=== PATIENT | male | born 1970 | race Caucasian/White ===

== ENCOUNTER 2018-01-30 18:20 | Emergency (ER) | payer MEDICARE, MEDICAID ==
[~2018-01-30] VITALS: Ht 604 cm; Wt 87.0 kg
[~2018-01-30 18:20] MED LIST: BAC10T PO; CARI250T PO; CLIN300C85 PO
[2018-01-30 18:25] VITALS: BP 148/72
[2018-01-30] MEDS ORDERED: ketorolac tromethamine 15mg/ml inj. IM ONE (19:55)
[2018-01-30] MEDS ORDERED: CYCL-1 PO (19:57)
[2018-01-30] MEDS ORDERED: orphenadrine citrate 60mg/2ml inj. IM ONE (20:00)
== END 2018-01-30 20:18 | disposition home or self-care (01) ==
LOC: ER 18:21
DX: M25.512 Pain in left shoulder (principal); I10 Essential (primary) hypertension; G89.29 Other chronic pain; Z88.6 Allergy status to analgesic agent; Z88.1 Allergy status to other antibiotic agents; Z88.0 Allergy status to penicillin; Z88.2 Allergy status to sulfonamides; Z88.8 Allergy status to other drugs, medicaments and biological substances
CPT/HCPCS: 96372; 99284; J1885; J2360

== ENCOUNTER 2018-07-14 18:03 | Emergency (ER) | payer MEDICARE, MEDICAID ==
[~2018-07-14] VITALS: Ht 177.8 cm; Wt 86.4 kg
[~2018-07-14 18:03] MED LIST changes: +CYCL-1 PO
[2018-07-14 18:07] VITALS: BP 158/94
[2018-07-14] MEDS ORDERED: AMOX500C2 PO (19:20)
--- NOTE | 2018-07-14 19:48 | NUR ---
PRESCRIPTION FOR PCN GIVEN. DISCUSSION WITH BOTH PT AND PA THAT PT HAS TAKEN AMOXICILLIN BEFORE AND WAS NOT ALLERGIC.
== END 2018-07-14 19:45 | disposition home or self-care (01) ==
LOC: ER 18:03
DX: K08.89 Other specified disorders of teeth and supporting structures (principal); I10 Essential (primary) hypertension; G89.29 Other chronic pain; Z88.1 Allergy status to other antibiotic agents; Z88.0 Allergy status to penicillin; Z88.6 Allergy status to analgesic agent; Z88.2 Allergy status to sulfonamides; Z88.8 Allergy status to other drugs, medicaments and biological substances; Z79.899 Other long term (current) drug therapy
CPT/HCPCS: 64400; 99284

== ENCOUNTER 2018-09-07 20:35 | Emergency (ER) | payer MEDICARE, MEDICAID ==
[~2018-09-07] VITALS: Ht 177.8 cm; Wt 88.6 kg
[~2018-09-07 20:35] MED LIST changes: +CLIN-96 PO; -CLIN300C85 PO
[2018-09-07 20:45] VITALS: BP 165/100
[2018-09-07] MEDS ORDERED: IBUP-1984 PO (21:20)
[2018-09-07] MEDS ORDERED: AMOX500C2 PO (21:20)
== END 2018-09-07 21:31 | disposition home or self-care (01) ==
LOC: ER 20:36
DX: S02.5XXA Fracture of tooth (traumatic), initial encounter for closed fracture (principal); I10 Essential (primary) hypertension; G89.29 Other chronic pain; Z88.0 Allergy status to penicillin; Z88.1 Allergy status to other antibiotic agents; Z88.6 Allergy status to analgesic agent; Z88.8 Allergy status to other drugs, medicaments and biological substances; Z79.2 Long term (current) use of antibiotics; Z79.899 Other long term (current) drug therapy; W22.8XXA Striking against or struck by other objects, initial encounter; Y93.89 Activity, other specified; Y92.89 Other specified places as the place of occurrence of the external cause; Y99.8 Other external cause status
CPT/HCPCS: 99283

== ENCOUNTER 2019-11-25 19:32 | Emergency (ER) | payer MEDICARE, MEDICAID ==
[~2019-11-25] VITALS: Ht 177.8 cm; Wt 88.6 kg
[~2019-11-25 19:32] MED LIST changes: -CLIN-96 PO; +CLIN-97 PO
[2019-11-25 19:36] VITALS: BP 202/99
[2019-11-25] MEDS ORDERED: NAPR-56 PO (20:15)
[2019-11-25] MEDS ORDERED: CEPH250T PO (20:15)
[2019-11-25] MEDS ORDERED: HYDROcodone/acetaminophen 10/325mg tab PO ONE (20:15)
== END 2019-11-25 20:41 | disposition home or self-care (01) ==
LOC: ER 19:33
DX: K08.89 Other specified disorders of teeth and supporting structures (principal); I10 Essential (primary) hypertension; G89.29 Other chronic pain; Z79.2 Long term (current) use of antibiotics; Z88.0 Allergy status to penicillin; Z79.82 Long term (current) use of aspirin; Z79.899 Other long term (current) drug therapy
CPT/HCPCS: 99283

== ENCOUNTER 2021-08-14 00:52 | Emergency (ER) | payer BC, MEDICAID ==
[~2021-08-14] VITALS: Ht 177.8 cm; Wt 100.0 kg
[2021-08-14] MEDS ORDERED: triamcinolone acet 0.1% cream 15gm TP ONE (01:40)
[2021-08-14] MEDS ORDERED: triamcinolone acetonide 40mg/ml inj IM ONE (01:40)
[2021-08-14] MEDS ORDERED: TRIA15CR61 TOP (01:40)
[2021-08-14 02:01] VITALS: BP 148/79
== END 2021-08-14 02:03 | disposition home or self-care (01) ==
LOC: ER 00:54
DX: L25.9 Unspecified contact dermatitis, unspecified cause (principal); M25.561 Pain in right knee; I10 Essential (primary) hypertension; G89.29 Other chronic pain; Z88.0 Allergy status to penicillin; Z88.1 Allergy status to other antibiotic agents; Z88.2 Allergy status to sulfonamides; Z88.6 Allergy status to analgesic agent; Z88.8 Allergy status to other drugs, medicaments and biological substances; Z79.2 Long term (current) use of antibiotics; Z79.899 Other long term (current) drug therapy
CPT/HCPCS: 96372; 99284; J3301

== ENCOUNTER 2021-08-21 23:22 | Emergency (ER) | payer BC, MEDICAID ==
[~2021-08-21] VITALS: Ht 177.8 cm; Wt 88.6 kg
[~2021-08-21 23:22] MED LIST changes: +TRIA15CR61 TOP
[2021-08-22 00:16] VITALS: BP 159/96
[2021-08-22] MEDS ORDERED: HYDROcodone/acetaminophen 5mg/325mg tablet PO ONE (00:40)
[2021-08-22 01:19] LABS: BASOPHILS # (AUTO) 0.1 X10'3 (0-0.2); BASOPHILS % (AUTO) 0.7 % (0-1); EOSINOPHILS # (AUTO) 1.4 X10'3 (0-0.9); EOSINOPHILS % (AUTO) 9.9 % (0-6); HEMATOCRIT 42.2 % (42.0-52.0); HEMOGLOBIN 14.5 g/dl (14.0-17.9); LYMPHOCYTES # (AUTO) 3.1 X10'3 (1.1-4.8); LYMPHOCYTES % (AUTO) 21.5 % (21-51); MEAN CORPUSCULAR HEMOGLOBIN 30.5 PG (27.0-31.0); MEAN CORPUSCULAR HGB CONC 34.4 g/dL (33.0-36.5); MEAN CORPUSCULAR VOLUME 88.6 FL (78-98); MEAN PLATELET VOLUME 8.6 FL (7.4-10.4); MONOCYTES # (AUTO) 1.2 X10'3 (0-0.9); NEUTROPHILS # (AUTO) 8.7 X10'3 (1.8-7.7); NEUTROPHILS % (AUTO) 59.9 % (42-75); PLATELET COUNT 299 X10'3 (140-440); RED BLOOD COUNT 4.76 X10'6 (4.70-6.10); RED CELL DISTRIBUTION WIDTH 14.5 % (11.5-14.5); WHITE BLOOD COUNT 14.6 X10'3 (4.5-11.0)
[2021-08-22 01:27] LABS: ALANINE AMINOTRANSFERASE 21 U/L (12-78); ALBUMIN/GLOBULIN RATIO 1.2 (1.1-1.5); ALKALINE PHOSPHATASE 71 IU/L (46-116); ANION GAP 11 (8-16); ASPARTATE AMINO TRANSFERASE 14 U/L (10-37); BILIRUBIN,TOTAL 0.3 MG/DL (0.1-1.0); BLOOD UREA NITROGEN 23 MG/DL (7-18); BUN/CREATININE RATIO 32.9 (5.4-32.0); CHLORIDE 100 MMOL/L (99-107); GLUCOSE 113 MG/DL (70-104); POTASSIUM 4.2 MMOL/L (3.5-5.1); SODIUM 138 MMOL/L (135-145); TOTAL CARBON DIOXIDE 27.1 MMOL/L (24-32); TOTAL PROTEIN 7.4 G/DL (6.4-8.2); eGFR > 90 ML/MIN
[2021-08-22] MEDS ORDERED: DIAZ10TA PO (02:37)
== END 2021-08-22 02:52 | disposition home or self-care (01) ==
LOC: ER 23:24
DX: M54.6 Pain in thoracic spine (principal); R07.89 Other chest pain; R10.84 Generalized abdominal pain; I10 Essential (primary) hypertension; G89.29 Other chronic pain; Z88.1 Allergy status to other antibiotic agents; Z88.0 Allergy status to penicillin; Z88.2 Allergy status to sulfonamides; Z88.8 Allergy status to other drugs, medicaments and biological substances; Z79.899 Other long term (current) drug therapy; Z79.2 Long term (current) use of antibiotics
CPT/HCPCS: 36415; 71045; 80053; 84484; 85025; 93005; 99285

== ENCOUNTER 2023-10-26 14:39 | Emergency (ER) | payer OTHER, MEDICAID ==
[~2023-10-26] VITALS: Ht 177.8 cm; Wt 88.0 kg
[~2023-10-26 14:39] MED LIST changes: +DIAZ-546 PO; -TRIA15CR61 TOP
[2023-10-26 14:49] VITALS: BP 126/76; PULSE 75; RESP 16; TEMP 98.9; O2SAT 98
== END 2023-10-26 16:53 | disposition left against medical advice (07) ==
LOC: ER 14:39
DX: H92.02 Otalgia, left ear (principal); Z53.21 Procedure and treatment not carried out due to patient leaving prior to being seen by health care provider

== ENCOUNTER 2023-12-25 12:49 | Emergency (ER) | payer OTHER, MEDICAID ==
[~2023-12-25] VITALS: Ht 177.8 cm; Wt 85.1 kg
[2023-12-25 13:12] VITALS: BP 121/76; PULSE 77; O2SAT 98
[2023-12-25 15:27] VITALS: RESP 16
[2023-12-25] MEDS: ketorolac trometh. 30mg/ml inj. IM ONE (15:27)
[2023-12-25] MEDS ORDERED: HYDR-3965 PO (16:08)
[2023-12-25] MEDS ORDERED: METH-798 PO (16:08)
[2023-12-25 16:16] VITALS: TEMP 97.9
[2023-12-26] MEDS ORDERED: HYDR-3965 PO (14:59)
== END 2023-12-25 16:18 | disposition home or self-care (01) ==
LOC: ER 12:50
DX: M54.50 Low back pain, unspecified (principal); I10 Essential (primary) hypertension; G89.29 Other chronic pain; Z91.041 Radiographic dye allergy status; Z88.0 Allergy status to penicillin; Z88.6 Allergy status to analgesic agent; Z88.2 Allergy status to sulfonamides; Z79.1 Long term (current) use of non-steroidal anti-inflammatories (NSAID); Z79.2 Long term (current) use of antibiotics; Z79.899 Other long term (current) drug therapy
CPT/HCPCS: 72100; 96372; 99283; J1885

== ENCOUNTER 2024-04-05 13:45 | Emergency (ER) | payer OTHER, MEDICAID ==
[~2024-04-05] VITALS: Ht 177.8 cm; Wt 86.9 kg
[~2024-04-05 13:45] MED LIST changes: +METH-798 PO
[2024-04-05] MEDS: LIDOcaine 1% 30ml preserv. free vial SQ STA (16:32)
[2024-04-05 17:08] VITALS: BP 115/68; PULSE 75; RESP 15; TEMP 98.6; O2SAT 99
== END 2024-04-05 17:10 | disposition home or self-care (01) ==
LOC: ER 13:46
DX: S01.111A Laceration without foreign body of right eyelid and periocular area, initial encounter (principal); I10 Essential (primary) hypertension; G89.29 Other chronic pain; Z88.1 Allergy status to other antibiotic agents; Z88.0 Allergy status to penicillin; Z88.2 Allergy status to sulfonamides; Z88.6 Allergy status to analgesic agent; Z79.899 Other long term (current) drug therapy; W26.9XXA Contact with unspecified sharp object(s), initial encounter; Y93.89 Activity, other specified; Y92.89 Other specified places as the place of occurrence of the external cause; Y99.8 Other external cause status
CPT/HCPCS: 12013; 99282; A4615; A6449

== ENCOUNTER 2024-07-12 16:25 | Emergency (ER) | payer MEDICARE, MEDICAID ==
[~2024-07-12] VITALS: Ht 177.8 cm; Wt 85.5 kg
[2024-07-12 16:36] VITALS: BP 132/83; PULSE 95; TEMP 98; O2SAT 95
[2024-07-12] MEDS ORDERED: IBUP-1984 PO (17:48)
[2024-07-12 18:22] VITALS: RESP 16
[2024-07-12] MEDS: ketorolac trometh 30MG/ML vial 30 MG/ML VIAL IM ONE (18:22)
== END 2024-07-12 18:26 | disposition home or self-care (01) ==
LOC: ER 16:26
DX: M54.59 Other low back pain (principal); I10 Essential (primary) hypertension; G89.29 Other chronic pain; Z88.1 Allergy status to other antibiotic agents; Z88.0 Allergy status to penicillin; Z88.2 Allergy status to sulfonamides; Z88.6 Allergy status to analgesic agent; Z88.8 Allergy status to other drugs, medicaments and biological substances; Z79.899 Other long term (current) drug therapy; Z79.1 Long term (current) use of non-steroidal anti-inflammatories (NSAID)
CPT/HCPCS: 96372; 99283; A4615; J1885

== ENCOUNTER 2024-11-18 07:34 | Outpatient (CLI) | payer MEDICARE, MEDICAID ==
--- NOTE | 2024-11-18 10:25 | RADIOLOGY REPORT ---
Exam: US US NON VASCULAR Date: 11/18/2024 08:11 AM Clinical History: LUMP IN CHEST Comparison: None Findings: Targeted sonographic evaluation of the soft tissues of the chest was obtained utilizing grayscale a nd color Doppler imaging. Multiple masses seen in chest. MRI suggested. IMPRESSION: Multiple masses seen in chest. MRI suggested. END IMPRESSION:
--- NOTE | 2024-11-19 10:29 | RADIOLOGY REPORT ---
INDICATION: LEFT UPPER QUADRANT PAIN TECHNIQUE: Multiple real-time sonographic images were obtained of the right upper quadrant. COMPARISON: None FINDINGS: The liver demonstrates homogeneous echotexture without focal mass lesions. The liver measu res 18.5 cm. There is no intrahepatic or extrahepatic ductal dilatation. The common duct measures 0.2 cm. Multiple gallbladder polyps are present measuring up to 0.3 cm. The gallbladder wall measures 0.2 cm and is within normal limits. Right kidney measures 12.8 cm. Left kidney measures 11.9 cm. No hydronephrosis. Spleen measures 11.1 cm. Visualized portions of the aorta and IVC are grossly unremarkable. The pancreas is not well visualized due to overlying bowel gas. IMPRESSION: Multiple gallbladder polyps are present measuring up to 0.3 cm. FOLLOW UP RECOMMENDATIONS: Low-risk polyps (pedunculated with a thick or wide stalk, or sessile): < 6 mm: no follow-up 7-9 mm follow-up ultrasound at 12 months 10-14 mm: follow-up ultrasound at 6, 12, 24, and 36 months vs surgical consult > 15 mm: surgical consult Eladia Schneider, Aníbal C, Fina Mcleod et al. Management of Incidentally Detected Gallbladder Polyps: Society of Radiologists in Ultrasound Consensus Conference Recommendations. Radiology. 2021;:[id number].
== END 2024-11-18 23:59 | disposition home or self-care (01) ==
LOC: RAD 07:34
PROVIDERS: ATTEND Physician Assistant
DX: K82.4 Cholesterolosis of gallbladder (principal); R10.12 Left upper quadrant pain; R22.2 Localized swelling, mass and lump, trunk; R91.8 Other nonspecific abnormal finding of lung field
CPT/HCPCS: 76700; 76882